=== PATIENT | female | born 1995 | race Two or more races ===

== ENCOUNTER 2020-05-17 10:43 | Inpatient (IN) | payer MEDICAID ==
[~2020-05-17] VITALS: Ht 162.6 cm; Wt 103.5 kg
[2020-05-17 11:02] LABS: Basophils # (auto) 0.1 10 ^3/uL (0-0.2); Eosinophils # (auto) 0 10 ^3/uL (0-0.8); Eosinophils % (auto) 0.4 % (0.0-7.0); Hemoglobin 14.7 g/dL (12.2-16.2); Mean Corpuscular Hgb Conc. 32.7 g/dL (32.0-36.0); Monocytes # (auto) 0.1 10 ^3/uL (0-1.3); Monocytes % (auto) 0.8 % (0.0-12.0); Nucleated Red Blood Cells % 0.1 %; Red Blood Cells 5.52 10^6/uL (4.0-5.20); Red Cell Distribution Width 15.4 % (11.8-14.3)
[2020-05-17 11:04] LABS: Basophils % (auto) 0.8 % (0.0-2.0); Hematocrit 44.9 % (36.0-46.0); Lymphocytes # (auto) 2.2 10 ^3/uL (0.4-5.4); Lymphocytes % (auto) 19.7 % (10.0-50.0); Mean Corpuscular Hemoglobin 26.6 pg (28.0-32.0); Mean Corpuscular Volume 81.3 fL (80.0-100.0); Neutrophils # (auto) 8.7 10 ^3/uL (1.6-8.6); Neutrophils % (auto) 78.3 % (37.0-80.0); Platelet Count (auto) 298 10^3/uL (140-450); White Blood Cell 11.1 10^3/uL (4.4-10.8)
[2020-05-17 11:17] LABS: Albumin 4.2 g/dL (3.4-5.0); Calcium 9.5 mg/dL (8.5-10.1); Potassium 3.6 mmol/L (3.5-5.1)
[2020-05-17 11:20] LABS: BUN/Creatinine Ratio 10.8; Bilirubin, Total 0.3 mg/dL (0.2-1.0); Total Protein 8.3 g/dL (6.4-8.2)
[2020-05-17] MEDS ORDERED: SODIUM CHLORIDE 0.9% 1,000 ML IV ONE (12:00)
[2020-05-17] MEDS ORDERED: PROMETHAZINE HCL 25 MG/ML 1ML IV ONE (12:00)
[2020-05-17] MEDS ORDERED: KETOROLAC TROMETH 30 MG/ML 1ML VIAL IV ONE (12:30)
[2020-05-17] MEDS ORDERED: traMADol HCL 50 MG TAB PO PRN (15:00)
[2020-05-17] MEDS ORDERED: ACETAMINOPHEN 500 MG TAB PO PRN (15:00)
[2020-05-17] MEDS ORDERED: MORPHINE SULF INJ 2 MG/ML SYRINGE 1ML IV PRN (15:00)
[2020-05-17] MEDS ORDERED: cefTRIAXone 1GM/50ML D5W 50 ML IV ONE (15:00)
[2020-05-17] MEDS ORDERED: PROMETHAZINE HCL 25 MG/ML 1ML IV PRN (15:00)
[2020-05-17] MEDS ORDERED: DEXTROSE (50%) 50ML SYRG IV PRN (15:00)
[2020-05-17] MEDS ORDERED: TEMAZEPAM 15 MG CAP PO PRN (15:00)
[2020-05-17] MEDS: ACCU-CHEK COMFORT CURVE STRIP VI SCH ×2 (17:59→21:41)
[2020-05-17] MEDS: SODIUM CHLORIDE 0.9% 1,000 ML IV SCH (18:45)
[2020-05-17] MEDS: FAMOTIDINE 20 MG TAB PO SCH (21:41)
[2020-05-17 22:00] VITALS: BP 120/80
[2020-05-18] MEDS: SODIUM CHLORIDE 0.9% 1,000 ML IV SCH ×3 (01:00→21:00)
[2020-05-18] MEDS: ACCU-CHEK COMFORT CURVE STRIP VI SCH ×4 (06:04→21:52)
[2020-05-18 06:18] VITALS: BP 109/66
[2020-05-18 07:09] LABS: Basophils # (auto) 0 10 ^3/uL (0-0.2); Eosinophils # (auto) 0 10 ^3/uL (0-0.8); Eosinophils % (auto) 0.3 % (0.0-7.0); Lymphocytes # (auto) 2.4 10 ^3/uL (0.4-5.4)
[2020-05-18 07:11] LABS: Basophils % (auto) 0.3 % (0.0-2.0); Hematocrit 37.3 % (36.0-46.0); Hemoglobin 12.2 g/dL (12.2-16.2); Lymphocytes % (auto) 18.2 % (10.0-50.0); Mean Corpuscular Hemoglobin 26.4 pg (28.0-32.0); Mean Corpuscular Hgb Conc. 32.8 g/dL (32.0-36.0); Mean Corpuscular Volume 80.5 fL (80.0-100.0); Monocytes % (auto) 7.6 % (0.0-12.0); Neutrophils # (auto) 9.8 10 ^3/uL (1.6-8.6); Neutrophils % (auto) 73.6 % (37.0-80.0); Nucleated Red Blood Cells % 0.1 %; Platelet Count (auto) 258 10^3/uL (140-450); Red Blood Cells 4.63 10^6/uL (4.0-5.20); Red Cell Distribution Width 15.3 % (11.8-14.3); White Blood Cell 13.3 10^3/uL (4.4-10.8)
[2020-05-18 07:34] LABS: Albumin 3.2 g/dL (3.4-5.0); BUN/Creatinine Ratio 12.2; Calcium 8.9 mg/dL (8.5-10.1); Potassium 3.3 mmol/L (3.5-5.1)
[2020-05-18 07:37] LABS: Bilirubin, Total 0.5 mg/dL (0.2-1.0)
[2020-05-18 08:00] VITALS: BP 126/69
[2020-05-18 09:00] VITALS: BP 126/69
[2020-05-18] MEDS: FAMOTIDINE 20 MG TAB PO SCH ×2 (09:20→21:52)
[2020-05-18] MEDS: cefTRIAXone 1GM/50ML D5W 50 ML IV SCH (09:20)
[2020-05-18 13:00] VITALS: BP 136/82
[2020-05-18] MEDS ORDERED: POTASSIUM EFFERVESENT TAB 25 MEQ PO ONE (15:15)
[2020-05-18 17:00] VITALS: BP 126/80
[2020-05-18 22:45] VITALS: BP 121/69
[2020-05-19 05:00] VITALS: BP 114/71
[2020-05-19 05:52] LABS: Eosinophils # (auto) 0 10 ^3/uL (0-0.8); Eosinophils % (auto) 0.2 % (0.0-7.0); Hematocrit 38.7 % (36.0-46.0); Lymphocytes # (auto) 1.9 10 ^3/uL (0.4-5.4); Neutrophils # (auto) 6.7 10 ^3/uL (1.6-8.6)
[2020-05-19 05:56] LABS: Basophils # (auto) 0.1 10 ^3/uL (0-0.2); Basophils % (auto) 0.5 % (0.0-2.0); Hemoglobin 12.7 g/dL (12.2-16.2); Lymphocytes % (auto) 20.1 % (10.0-50.0); Mean Corpuscular Hemoglobin 26.4 pg (28.0-32.0); Mean Corpuscular Hgb Conc. 32.7 g/dL (32.0-36.0); Mean Corpuscular Volume 80.6 fL (80.0-100.0); Monocytes % (auto) 9.9 % (0.0-12.0); Neutrophils % (auto) 69.3 % (37.0-80.0); Nucleated Red Blood Cells % 0.2 %; Platelet Count (auto) 244 10^3/uL (140-450); Red Blood Cells 4.81 10^6/uL (4.0-5.20); Red Cell Distribution Width 15.1 % (11.8-14.3); White Blood Cell 9.7 10^3/uL (4.4-10.8)
[2020-05-19 06:06] LABS: INR 1.03 (0.9-1.15)
[2020-05-19 06:09] LABS: Potassium 3.4 mmol/L (3.5-5.1)
[2020-05-19 06:15] LABS: BUN/Creatinine Ratio 12.5; Calcium 8.8 mg/dL (8.5-10.1)
[2020-05-19] MEDS: SODIUM CHLORIDE 0.9% 1,000 ML IV SCH ×2 (06:21→16:23)
[2020-05-19] MEDS: ACCU-CHEK COMFORT CURVE STRIP VI SCH ×3 (06:21→16:23)
[2020-05-19 08:00] VITALS: BP 116/65
[2020-05-19 09:00] VITALS: BP 116/65
[2020-05-19] MEDS: cefTRIAXone 1GM/50ML D5W 50 ML IV SCH (09:24)
[2020-05-19] MEDS: FAMOTIDINE 20 MG TAB PO SCH (09:25)
[2020-05-19 13:00] VITALS: BP 142/76
[2020-05-19] MEDS ORDERED: POTASSIUM EFFERVESENT TAB 25 MEQ PO ONE (14:00)
[2020-05-19 17:00] VITALS: BP 121/74
== END 2020-05-19 19:48 | disposition left against medical advice (07) | DRG 463 ==
LOC: ER 10:43 → OVERFLOW 10:44 → WEST WING 18:30
PROVIDERS: ADMIT Internal Medicine; ATTEND Internal Medicine
DX: N13.6 Pyonephrosis (principal); N20.0 Calculus of kidney; E66.9 Obesity, unspecified; E11.65 Type 2 diabetes mellitus with hyperglycemia; E87.6 Hypokalemia; K42.9 Umbilical hernia without obstruction or gangrene; Z53.29 Procedure and treatment not carried out because of patient's decision for other reasons; Z82.49 Family history of ischemic heart disease and other diseases of the circulatory system; Z83.3 Family history of diabetes mellitus; Z82.61 Family history of arthritis; Z68.34 Body mass index [BMI] 34.0-34.9, adult
CPT/HCPCS: 36415; 74018; 74176; 76775; 80048; 80053; 82962; 83036; 83690; 84702; 85025; 85610; G0378; J0696; J1885